=== PATIENT | male | born 1980 ===

== ENCOUNTER 2017-09-30 10:09 | Emergency (ER) | payer MEDICAID, OTHER ==
[2017-09-30 10:10] VITALS: BMI 19.8
[2017-09-30 10:19] VITALS: O2SAT 100
--- NOTE | 2017-09-30 11:03 | C.PDOC ---
History Of Present Illness 37 year old male with Hx of ulcers presents to the ED c/o non radiating abdominal pain for the past 3 days. Patient reports he goes to dialysis twice a week on Friday and Friday. Patient denies vomit, nausea, fever, diarrhea, cough, weakness, numbness, SOB. Chief Complaint (Nursing): Abdominal Pain History Per: Patient History/Exam Limitations: no limitations Onset/Duration Of Symptoms: Days Current Symptoms Are (Timing): Gone Location Of Pain/Discomfort: RUQ Radiation Of Pain To:: None Quality Of Discomfort: "Pain" Associated Symptoms: denies: Fever, Chills, Nausea, Vomiting, Diarrhea, Loss Of Appetite Recent travel outside of the [place]: No Additional History Per: Patient Past Medical History Reviewed: Historical Data, Nursing Documentation, Vital Signs Vital Signs: Last Vital Signs Temp 97.4 F L 09/30/17 13:10 Pulse 66 09/30/17 13:10 Resp 18 09/30/17 13:10 BP 150/85 09/30/17 13:10 Pulse Ox 100 09/30/17 13:10 - Medical History PMH: HTN, Hypothyroidism, End Stage Renal Disease (W-F), Chronic Kidney Disease Surgical History: Appendectomy - [facility] Procedures EXCISION OF DUODENUM, ENDO, DIAGN (01/02/16) EXCISION OF STOMACH, ENDO, DIAGN (01/02/16) HEMODIALYSIS (10/03/13) PERFORMANCE OF URINARY FILTRATION, MULTIPLE (01/02/16) Family History: States: Unknown Family Hx - Social History Hx Tobacco Use: No Hx Alcohol Use: No Hx Substance Use: No - Immunization History Hx Tetanus Toxoid Vaccination: Yes Hx Influenza Vaccination: Yes Hx Pneumococcal Vaccination: Yes (04/2015) Review Of Systems Constitutional: Negative for: Fever, Chills Cardiovascular: Negative for: Chest Pain Respiratory: Negative for: Cough, Shortness of Breath Gastrointestinal: Positive for: Abdominal Pain. Negative for: Nausea, Vomiting , Diarrhea Skin: Negative for: Rash Neurological: Negative for: Weakness, Numbness Physical Exam - Physical Exam Appears: Non-toxic, No Acute Distress Skin: Normal Color, Warm, Dry Head: Atraumatic, Normacephalic Nose: No Discharge Oral Mucosa: Moist Neck: Normal ROM, Supple Chest: Symmetrical Cardiovascular: Rhythm Regular, No Murmur Respiratory: Normal Breath Sounds, No Rales, No Rhonchi, No Wheezing Gastrointestinal/Abdominal: Soft, Tenderness (Very mild RUQ), No Guarding, No Rebound Back: No CVA Tenderness Extremity: Normal ROM, No Pedal Edema, No Calf Tenderness, No Swelling, Other ( Left arm AV grafts ) Neurological/Psych: Oriented x3, Normal Speech, Normal Cognition Gait: Steady ED Course And Treatment - Laboratory Results Result Diagrams: 09/30/17 11:28 09/30/17 11:28 O2 Sat by Pulse Oximetry: 100 (On RA) Pulse Ox Interpretation: Normal - CT Scan/US Abdomen US Other Rad Studies (CT/US): Interpreted By Me, Read By Radiologist, Radiology Report Reviewed CT/US Interpretation: HISTORY: abd pain- greatest in RUQ. COMPARISON: Abdominal ultrasound performed 10/02/13. TECHNIQUE: Sonographic evaluation of the abdomen. FINDINGS: LIVER: Measures 17.7 cm in sagittal dimension. Echogenic liver may be seen in setting of hepatic parenchymal disease or fatty infiltration. No focal hepatic mass identified. The main portal vein appears patent with normal directional flow. No intrahepatic bile duct dilatation. Abdominal ascites. GALLBLADDER: No gallstones. No gallbladder wall thickening. Negative sonographic Carrillo's sign as assessed by the logistics account manager. COMMON BILE DUCT: Measures 5 mm. PANCREAS: Not well visualized. RIGHT KIDNEY : Echogenic renal parenchyma. Measures 9.2 x 2.9 x 3.7cm. No hydronephrosis appreciated. 4 mm right upper pole calculus. Midpole renal cyst measures approximately 1.3 x 1.0 x 1.4 cm with associated echogenic focus, possibly calcification. Lower pole renal cyst measures approximately 0.8 x 0.9 x 0.9 cm. LEFT KIDNEY: Echogenic renal parenchyma. Measures 9.1 x 4.1 x 4.5cm. No hydronephrosis. 6 mm midpole calculus. 1.1 x 0.9 x 1.3 cm upper pole cyst. SPLEEN: Measures approximately 12.1 cm. AORTA: Limited views appear unremarkable. IVC: Limited views appear unremarkable. OTHER FINDINGS: None. IMPRESSION: Echogenic liver may be seen in setting of hepatic parenchymal disease or fatty infiltration. Bilateral renal cysts as above including 1.4 cm right midpole cyst with associated echogenic focus, possibly calcification. Nonobstructing bilateral renal calculi. Echogenic renal parenchyma may be seen in setting of medical renal disease. Mild ascites. Medical Decision Making Medical Decision Making: Plan: * Blood work ordered * UA ordered * Urine culture collected * Abdomen US ordered Disposition - Disposition Referrals: Reg Dodson [Medical Doctor] - Disposition: HOME/ ROUTINE Disposition Time: 12:40 Condition: GOOD Additional Instructions: Thank you for letting us take care of you today. The emergency medical care you received today was directed at your acute symptoms. If you were prescribed any medication, please fill it and take as directed. It may take several days for your symptoms to resolve. Return to the Emergency Department if your symptoms worsen, do not improve, or if you have any other problems. Please contact your doctor or call one of the physicians/clinics you have been referred to that are listed on the Patient Visit Information form that is included in your discharge packet. Bring any paperwork you were given at discharge with you along with any medications you are taking to your follow up visit. Our treatment cannot replace ongoing medical care by a primary care provider (PCP) outside of the emergency department. Thank you for allowing the Critical access hospital team to be part of your care today. FOLLOW UP WITH DR. DODSON TODAY OR TOMORROW. YOUR CREATININE IS 18.[address] DODSON OF THIS BLOOD VALUE. Instructions: Pancreatitis (ED), Chronic Kidney Disease (ED), Dialysis Diet ( GEN) - Clinical Impression Clinical Impression: Abdominal pain, Chronic kidney disease - Scribe Statement The provider has reviewed the documentation as recorded by the Scribe Max Louie All medical record entries made by the Scribe were at my direction and personally dictated by me. I have reviewed the chart and agree that the record accurately reflects my personal performance of the history, physical exam, medical decision making, and the department course for this patient. I have also personally directed, reviewed, and agree with the discharge instructions and disposition.
[2017-09-30 11:38] LABS: BASO % 0.5 % (0.0-2.0); EOS # 0.2 K/uL (0.0-0.7); EOS % 2.5 % (0.0-4.0); HEMATOCRIT 35.1 % (35.0-51.0); LYMPH # 1.4 K/uL (1.0-4.3); MEAN CELL VOLUME 88.6 fL (80.0-94.0); MEAN CORPUSCULAR HEMOGLOBIN 29.4 pg (27.0-31.0); MEAN CORPUSCULAR HGB CONC 33.2 g/dL (33.0-37.0); MEAN PLATELET VOLUME 8.1 fL (7.2-11.7); MONO # 0.4 K/uL (0.0-0.8); MONO % 6.4 % (0.0-10.0); NRBC % 0.6 % (0.0-2.0); RED CELL DISTRIBUTION WIDTH 15.1 % (11.5-14.5); WHITE BLOOD COUNT 6.2 K/uL (4.8-10.8)
[2017-09-30 11:59] LABS: ALB/GLOB RATIO 1.6 (1.0-2.1); BILIRUBIN,TOTAL 0.6 mg/dL (0.2-1.3); CALCIUM 7.8 mg/dl (8.6-10.4); POTASSIUM 4.4 mmol/L (3.6-5.2); TOTAL PROTEIN 6.5 g/dL (6.3-8.3)
--- NOTE | 2017-09-30 12:39 | US ---
HISTORY: abd pain- greatest in RUQ COMPARISON: Abdominal ultrasound performed 10/02/13 TECHNIQUE: Sonographic evaluation of the abdomen. FINDINGS: LIVER: Measures 17.7 cm in sagittal dimension. Echogenic liver may be seen in setting of hepatic parenchymal disease or fatty infiltration. No focal hepatic mass identified. The main portal vein appears patent with normal directional flow. No intrahepatic bile duct dilatation. Abdominal ascites. GALLBLADDER: No gallstones. No gallbladder wall thickening. Negative sonographic Carrillo's sign as assessed by the health and safety coordinator. COMMON BILE DUCT: Measures 5 mm. PANCREAS: Not well visualized. RIGHT KIDNEY: Echogenic renal parenchyma. Measures 9.2 x 2.9 x 3.7cm. No hydronephrosis appreciated. 4 mm right upper pole calculus. Midpole renal cyst measures approximately 1.3 x 1.0 x 1.4 cm with associated echogenic focus, possibly calcification. Lower pole renal cyst measures approximately 0.8 x 0.9 x 0.9 cm. LEFT KIDNEY: Echogenic renal parenchyma. Measures 9.1 x 4.1 x 4.5cm. No hydronephrosis. 6 mm midpole calculus. 1.1 x 0.9 x 1.3 cm upper pole cyst. SPLEEN: Measures approximately 12.1 cm. AORTA: Limited views appear unremarkable. IVC: Limited views appear unremarkable. OTHER FINDINGS: None. IMPRESSION: Echogenic liver may be seen in setting of hepatic parenchymal disease or fatty infiltration. Bilateral renal cysts as above including 1.4 cm right midpole cyst with associated echogenic focus, possibly calcification. Nonobstructing bilateral renal calculi. Echogenic renal parenchyma may be seen in setting of medical renal disease. Mild ascites.
[2017-09-30 13:14] VITALS: BP 150/85; PULSE 66; RESP 18; TEMP 97.4
== END 2017-09-30 13:26 | disposition home or self-care (01) ==
LOC: C.ER 10:09
DX: R10.11 Right upper quadrant pain (principal); N18.6 End stage renal disease; Z99.2 Dependence on renal dialysis

== ENCOUNTER 2017-10-01 11:50 | Inpatient (IN) | payer MEDICAID ==
[2017-10-01 12:03] VITALS: BMI 19.5
[2017-10-01 12:56] LABS: BASO % 0.3 % (0.0-2.0); EOS # 0.1 K/uL (0.0-0.7); EOS % 1.5 % (0.0-4.0); HEMATOCRIT 38.7 % (35.0-51.0); LYMPH # 1.1 K/uL (1.0-4.3); LYMPH % 13.5 % (20.0-40.0); MEAN CELL VOLUME 88.5 fL (80.0-94.0); MEAN CORPUSCULAR HEMOGLOBIN 29.3 pg (27.0-31.0); MEAN CORPUSCULAR HGB CONC 33.1 g/dL (33.0-37.0); MEAN PLATELET VOLUME 8.1 fL (7.2-11.7); MONO # 0.4 K/uL (0.0-0.8); MONO % 5.2 % (0.0-10.0); NRBC % 0.6 % (0.0-2.0); RED CELL DISTRIBUTION WIDTH 15.1 % (11.5-14.5); WHITE BLOOD COUNT 8.5 K/uL (4.8-10.8)
--- NOTE | 2017-10-01 13:03 | C.PDOC ---
History Of Present Illness Patient presents to ED c/o epigastric and substernal chest pain, described as sharp and pressure-like, that occasionally radiates to his back. Patient was seen in ED yesterday for similar symptoms, but today he states the symptoms were in the chest. Symptoms happened during hemodialysis (completed 1.5 hrs). He denies SOB, cough, fever, abdominal pain, nausea/vomiting. Time Seen by Provider: 10/01/17 11:54 Chief Complaint (Nursing): Chest Pain History Per: Patient History/Exam Limitations: no limitations Onset/Duration Of Symptoms: Days (2) Current Symptoms Are (Timing): Still Present Severity: Moderate Quality: Sharp, Pressure, "Pain" Exacerbating Factors: Movement (sitting forward) Past Medical History Reviewed: Historical Data, Nursing Documentation, Vital Signs Vital Signs: Last Vital Signs Temp 98 F 10/03/17 17:55 Pulse 80 10/03/17 17:55 Resp 16 10/03/17 17:55 BP 118/60 10/03/17 17:55 Pulse Ox 98 10/04/17 17:45 - Medical History PMH: HTN, Hypothyroidism, End Stage Renal Disease (W-F), Chronic Kidney Disease Surgical History: Appendectomy - [facility] Procedures EXCISION OF DUODENUM, ENDO, DIAGN (01/02/16) EXCISION OF STOMACH, ENDO, DIAGN (01/02/16) HEMODIALYSIS (10/03/13) PERFORMANCE OF URINARY FILTRATION, MULTIPLE (01/02/16) Family History: States: No Known Family Hx - Social History Hx Tobacco Use: No Hx Alcohol Use: No Hx Substance Use: No - Immunization History Hx Tetanus Toxoid Vaccination: Yes Hx Influenza Vaccination: Yes Hx Pneumococcal Vaccination: Yes (04/2015) Review Of Systems Except As Marked, All Systems Reviewed And Found Negative. Constitutional: Negative for: Fever, Chills Cardiovascular: Positive for: Chest Pain. Negative for: Palpitations Respiratory: Negative for: Cough, Shortness of Breath Gastrointestinal: Positive for: Abdominal Pain. Negative for: Nausea, Vomiting , Diarrhea Skin: Negative for: Rash Physical Exam - Physical Exam Appears: Well, Non-toxic, No Acute Distress Skin: Normal Color, Warm, Dry, No Rash Oral Mucosa: Moist Cardiovascular: Rhythm Regular Respiratory: Normal Breath Sounds, No Rales, No Rhonchi, No Wheezing Gastrointestinal/Abdominal: Bowel Sounds, Soft, Tenderness (mild epigastric TTP , (-) Carrillo's) Extremity: Other (LUE AV fistula with palpable thrill) ED Course And Treatment - Laboratory Results Result Diagrams: 10/01/17 12:53 10/01/17 12:53 ECG: Interpreted By Me, Viewed By Me (NSR 70 bpm, normal axis, LVH, no acute ST/ T wave changes) ECG Interpretation: No Acute Changes O2 Sat by Pulse Oximetry: 98 (RA) Pulse Ox Interpretation: Normal - Radiology CXR: Interpreted by Me, Viewed By Me CXR Interpretation: Yes: No Acute Disease. No: Infiltrates - CT Scan/US CT CHEST/ABD IV CONTRAST Other Rad Studies (CT/US): Read By Radiologist, Radiology Report Reviewed CT/US Interpretation: Accession No. : [id number]. Patient Name / ID : FERMIN CHRISTOPHER O / [id number]. Exam Date : 10/01/2017 14:49:11 ( Approved ). Study Comment : Sex / Age : M / [id number]. Creator : Mercedes Cruz. Dictator : Marnie Smith MD. Manufacturer Agent : Retail Worker : Marnie Smith MD. Approver2 : Report Date : 10/01/2017 15:18:03. My Comment : . CT dissection protocol. Indication: Epigastric and chest pain, rule out dissection. Comparison: None available. Technique: Contrast dose: 100 cc Visipaque 320. Total exam DLP: 503.90. Axial computed tomographic angiogram images of the chest and abdomen were performed after bolus administration of nonionic intravenous contrast. Sagittal and coronal reformatted images were generated and reviewed. This CT exam was performed using 1 or more of the falling dose reduction techniques: Automated exposure control, adjustment of the MAA and/or kV according to patient size, and/or use of iterative reconstruction technique. Findings: The visualized inferior thyroid gland appears unremarkable. Visualized mediastinal and hilar vascular structures appear unremarkable. Heart size appears within normal limits. No focal consolidation. No pleural effusion. No pneumothorax. There is normal course and contour of the abdominal aorta and common iliac arteries. The celiac artery origin is widely patent. The superior mesenteric artery origin is widely patent. The inferior mesenteric artery origin is patent. Bilateral renal arteries appear widely patent. The liver appears within normal limits of size and morphology. The pancreas, spleen, adrenal glands, and gallbladder appear unremarkable. No obstructing calculi or hydronephrosis identified. Nonobstructing punctate bilateral renal calculi. Innumerable bilateral renal hypodensities, too small to characterize. No bulky adenopathy identified. Visualized bowel loops appear within normal limits of caliber without evidence of obstruction. Marked small bowel wall thickening; correlate clinically for enteritis. No definite free air. No acute osseous abnormality is detected. Diffuse bony sclerosis of the osseous structures; correlate clinically for underlying pathology such as metabolic pathology/ renal osteodystrophy. Impression: No aneurysmal dilatation or dissection. Innumerable bilateral renal hypodensities which are too small to characterize. Marked small bowel wall thickening ; correlate clinically for enteritis. Diffuse bony sclerosis of the osseous structures; correlate clinically for underlying pathology such as metabolic pathology/ renal osteodystrophy. Progress Note: Blood work, CXR, EKG ordered and reviewed. Spoke with patient's grader green meat Dr. Lackey, agrees CT chest/abd with hemodialysis immediately after. - Physician Consult Information Physician Contacted: Zina Huston Outcome Of Conversation: Discussed patient with PMD, agrees with admission for chest pain, R/O ACS. Disposition - Disposition Disposition: HOSPITALIZED Disposition Time: 13:44 Condition: STABLE - Clinical Impression Clinical Impression: Chest pain Decision To Admit - Pt Status Changed To: Hospital Disposition Of: Inpatient - Admit Certification Admit to Inpatient:: After my assessment, the patient will require hospitalization for at least two midnights. This is because of the severity of symptoms shown, intensity of services needed, and/or the medical risk in this patient being treated as an outpatient. - InPatient: Physician Admission Certification: I certify that this patient requires 2 or more midnights of care for the following reason:: see notes - . Bed Request Type: Telemetry Admitting Physician: Zina Huston Patient Diagnosis: Chest pain
[2017-10-01 13:10] LABS: ALB/GLOB RATIO 1.4 (1.0-2.1); ALKALINE PHOSPHATASE 102 U/L (38-126); ALT/SGPT 41 U/L (21-72); AST/SGOT 21 U/L (17-59); BILIRUBIN,TOTAL 0.9 mg/dL (0.2-1.3); BLOOD UREA NITROGEN 91 mg/dL (9-20); CALCIUM 7.7 mg/dl (8.6-10.4); CARBON DIOXIDE 26 mmol/L (22-30); CHLORIDE 94 mmol/L (98-107); GLUCOSE,RANDOM 83 mg/dL (75-110); POTASSIUM 3.7 mmol/L (3.6-5.2); SODIUM 139 mmol/L (132-148); TOTAL PROTEIN 7.5 g/dL (6.3-8.3)
[2017-10-01 13:32] LABS: GFR AFRICAN-AMERICAN 5
--- NOTE | 2017-10-01 13:55 | RAD ---
HISTORY: CP COMPARISON: Chest x-ray performed at 01/08/16 TECHNIQUE: Chest, one view. FINDINGS: LUNGS: Right hilar prominence. No focal consolidation. Please note that chest x-ray has limited sensitivity for the detection of pulmonary masses. PLEURA: No significant pleural effusion identified. No definite pneumothorax . CARDIOVASCULAR: The cardiomediastinal silhouette appears within normal limits of size. OSSEOUS STRUCTURES: No acute osseous abnormality identified. VISUALIZED UPPER ABDOMEN: Unremarkable. OTHER FINDINGS: None. IMPRESSION: Right hilar prominence. No focal consolidation, significant pleural effusion, or definite pneumothorax identified.
[2017-10-01] MEDS ORDERED: Iodixanol 320 MG/ML 100 ML BOTTLE IV ONE (14:43)
--- NOTE | 2017-10-01 14:45 | CP.PCM.CON ---
History of Present Illness - History of Present Illness History of Present Illness: 37 yo [place] male, history of HTN and ESRD for 6 years, presents with pleuritic chest pain and increased pain on leaning forward for 2 days. Pt received only 1 hour of HD today due to pain. No history of coronary artery disease. Notes "skips" HD treatments. No cough or fever. Vitals are stable in ER. Chest CT scan ordered, HD to be arranged. Review of Systems - Constitutional Constitutional: absent: Fatigue, Fever - EENT Eyes: absent: Blurred Vision, Decreased Night Vision Nose/Mouth/Throat: absent: Nasal Discharge, Sinus Pain - Cardiovascular Cardiovascular: Chest Pain. absent: Dyspnea on Exertion - Respiratory Respiratory: Dyspnea, Pain on Inspiration - Gastrointestinal Gastrointestinal: absent: Abdominal Pain, Bloating - Genitourinary Genitourinary: Change in Urinary Stream - Musculoskeletal Musculoskeletal: absent: Arthralgias, Joint Swelling - Neurological Neurological: absent: Abnormal Gait, Abnormal Hearing - Psychiatric Psychiatric: absent: Anxiety, Memory Loss Past Patient History - Infectious Disease Hx of Infectious Diseases: None - Past Medical History & Family History Past Medical History?: Yes - Past Social History Smoking Status: Never Smoked - CARDIAC Hx Hypertension: Yes - PULMONARY Hx Respiratory Disorders: No - NEUROLOGICAL Hx Neurological Disorder: No - HEENT Hx HEENT Problems: No - RENAL Hx Chronic Kidney Disease: Yes - ENDOCRINE/METABOLIC Hx Hypothyroidism: Yes - HEMATOLOGICAL/ONCOLOGICAL Hx Blood Disorders: No - INTEGUMENTARY Hx Dermatological Problems: No - MUSCULOSKELETAL/RHEUMATOLOGICAL Hx Falls: No - GASTROINTESTINAL Hx Gastrointestinal Disorders: Yes Hx Nausea: Yes Other/Comment: 'STOMACH ULCER' - PSYCHIATRIC Hx Substance Use: No - SURGICAL HISTORY Hx Appendectomy: Yes - ANESTHESIA Hx Anesthesia: Yes Hx Anesthesia Reactions: No Hx Malignant Hyperthermia: No Meds Allergies/Adverse Reactions: Allergies Allergy/AdvReac Type Severity Reaction Status Date / Time oxycodone Allergy Verified 10/01/17 12:11 tramadol Allergy NAUSEA Verified 10/01/17 12:11 Physical Exam - Constitutional Appears: Non-toxic, No Acute Distress - Head Exam Head Exam: ATRAUMATIC, NORMAL INSPECTION - Eye Exam Eye Exam: EOMI, Normal appearance - ENT Exam ENT Exam: Mucous Membranes Moist - Neck Exam Neck exam: Positive for: Full Rom. Negative for: Lymphadenopathy - Respiratory Exam Respiratory Exam: Clear to Auscultation Bilateral. absent: Accessory Muscle Use - Cardiovascular Exam Cardiovascular Exam: REGULAR RHYTHM. absent: Rubs - Extremities Exam Extremities exam: Negative for: pedal edema - Neurological Exam Neurological exam: Alert, Oriented x3 Results - Vital Signs Recent Vital Signs: Last Vital Signs Temp 98.7 F 10/01/17 14:15 Pulse 76 10/01/17 14:15 Resp 20 10/01/17 14:15 BP 135/76 10/01/17 14:15 Pulse Ox 100 10/01/17 14:15 - Labs Result Diagrams: 10/01/17 12:53 10/01/17 12:53 Labs: Laboratory Results - last 24 hr 10/01/17 10/01/17 12:53 12:53 WBC 8.5 RBC 4.38 L Hgb 12.8 Hct 38.7 MCV 88.5 MCH 29.3 MCHC 33.1 RDW 15.1 H Plt Count 163 MPV 8.1 Neut % (Auto) 79.5 H Lymph % (Auto) 13.5 L Harris % (Auto) 5.2 Eos % (Auto) 1.5 Baso % (Auto) 0.3 Neut # 6.8 Lymph # 1.1 Harris # 0.4 Eos # 0.1 Baso # 0.0 Sodium 139 Potassium 3.7 Chloride 94 L Carbon Dioxide 26 Anion Gap 22 H BUN 91 H Creatinine 14.0 H* D Est GFR ( Amer) 5 Est GFR (Non-Af Amer) 4 Random Glucose 83 Calcium 7.7 L Total Bilirubin 0.9 AST 21 ALT 41 Alkaline Phosphatase 102 Total Creatine Kinase 103 CK-MB (Mass) 2.92 Troponin I < 0.0120 Total Protein 7.5 Albumin 4.4 Globulin 3.2 Albumin/Globulin Ratio 1.4 Assessment & Plan - Assessment and Plan (Free Text) Assessment: noncompliance with HD atypical chest pain agree with chest ct will order echo to evaluate for pericardial effusion HD today
--- NOTE | 2017-10-01 15:41 | CT ---
CT dissection protocol Indication: Epigastric and chest pain, rule out dissection Comparison: None available Technique: Contrast dose: 100 cc Visipaque 320 Total exam DLP: 503.90 Axial computed tomographic angiogram images of the chest and abdomen were performed after bolus administration of nonionic intravenous contrast. Sagittal and coronal reformatted images were generated and reviewed. This CT exam was performed using 1 or more of the falling dose reduction techniques: Automated exposure control, adjustment of the MAA and/or kV according to patient size, and/or use of iterative reconstruction technique. Findings: The visualized inferior thyroid gland appears unremarkable. Visualized mediastinal and hilar vascular structures appear unremarkable. Heart size appears within normal limits. No focal consolidation. No pleural effusion. No pneumothorax. There is normal course and contour of the abdominal aorta and common iliac arteries. The celiac artery origin is widely patent. The superior mesenteric artery origin is widely patent. The inferior mesenteric artery origin is patent. Bilateral renal arteries appear widely patent. The liver appears within normal limits of size and morphology. The pancreas, spleen, adrenal glands, and gallbladder appear unremarkable. No obstructing calculi or hydronephrosis identified. Nonobstructing punctate bilateral renal calculi. Innumerable bilateral renal hypodensities, too small to characterize. No bulky adenopathy identified. Visualized bowel loops appear within normal limits of caliber without evidence of obstruction. Marked small bowel wall thickening; correlate clinically for enteritis. No definite free air. No acute osseous abnormality is detected. Diffuse bony sclerosis of the osseous structures; correlate clinically for underlying pathology such as metabolic pathology/ renal osteodystrophy. Impression: No aneurysmal dilatation or dissection. Innumerable bilateral renal hypodensities which are too small to characterize. Marked small bowel wall thickening ; correlate clinically for enteritis. Diffuse bony sclerosis of the osseous structures; correlate clinically for underlying pathology such as metabolic pathology/ renal osteodystrophy.
--- NOTE | 2017-10-01 19:43 | CP.PCM.HP ---
Past Patient History - Infectious Disease Hx of Infectious Diseases: None - Past Medical History & Family History Past Medical History?: Yes - Past Social History Smoking Status: Never Smoked - CARDIAC Hx Cardiac Disorders: Yes Hx Hypertension: Yes - PULMONARY Hx Respiratory Disorders: Yes Hx Pneumonia: Yes (2014) - NEUROLOGICAL Hx Neurological Disorder: No - HEENT Hx HEENT Problems: Yes Hx Epistaxis: Yes (Precipitated by dry heat) - RENAL Hx Chronic Kidney Disease: Yes Hx Dialysis: Yes Type of Dialysis Access: Left AVF Date of Last Dialysis Treatment: 10/01/17 Other/Comment: [facility] HD center in - ENDOCRINE/METABOLIC Hx Endocrine Disorders: Yes Hx Hypothyroidism: Yes - HEMATOLOGICAL/ONCOLOGICAL Hx Blood Disorders: No - INTEGUMENTARY Hx Dermatological Problems: No - MUSCULOSKELETAL/RHEUMATOLOGICAL Hx Musculoskeletal Disorders: Yes Hx Falls: No (Denies) Hx Fractures: Yes (B/L hip fractures 2012 as per pt) - GASTROINTESTINAL Hx Gastrointestinal Disorders: Yes Hx Nausea: Yes Hx Ulcer: Yes ('STOMACH ULCER w/ bleeding' as per pt) - GENITOURINARY/GYNECOLOGICAL Hx Genitourinary Disorders: No - PSYCHIATRIC Hx Psychophysiologic Disorder: No Hx Substance Use: No - SURGICAL HISTORY Hx Surgeries: Yes Hx Appendectomy: Yes Hx Vascular Access Device: Yes (Left AVF) - ANESTHESIA Hx Anesthesia: Yes Hx Anesthesia Reactions: No Hx Malignant Hyperthermia: No Has any member of the family had a problem w/ anesthesia?: No Meds Allergies/Adverse Reactions: Allergies Allergy/AdvReac Type Severity Reaction Status Date / Time oxycodone Allergy Verified 10/01/17 12:11 tramadol Allergy NAUSEA Verified 10/01/17 12:11 Physical Exam - Constitutional Appears: Well - Head Exam Head Exam: ATRAUMATIC, NORMAL INSPECTION, NORMOCEPHALIC - Eye Exam Eye Exam: EOMI, Normal appearance, PERRL Pupil Exam: NORMAL ACCOMODATION, PERRL - ENT Exam ENT Exam: Mucous Membranes Moist, Normal Exam - Neck Exam Neck exam: Positive for: Normal Inspection - Respiratory Exam Respiratory Exam: Decreased Breath Sounds - Cardiovascular Exam Cardiovascular Exam: REGULAR RHYTHM, +S1, +S2 - GI/Abdominal Exam GI & Abdominal Exam: Diminished Bowel Sounds, Soft - Rectal Exam Rectal Exam: Deferred Results - Vital Signs Recent Vital Signs: Last Vital Signs Temp 98.1 F 10/01/17 18:05 Pulse 79 10/01/17 18:20 Resp 20 10/01/17 18:05 BP 144/82 10/01/17 18:05 Pulse Ox 100 10/01/17 18:05 - Labs Result Diagrams: 10/01/17 12:53 10/01/17 12:53 Labs: Laboratory Results - last 24 hr 10/01/17 10/01/17 12:53 12:53 WBC 8.5 RBC 4.38 L Hgb 12.8 Hct 38.7 MCV 88.5 MCH 29.3 MCHC 33.1 RDW 15.1 H Plt Count 163 MPV 8.1 Neut % (Auto) 79.5 H Lymph % (Auto) 13.5 L Bucks % (Auto) 5.2 Eos % (Auto) 1.5 Baso % (Auto) 0.3 Neut # 6.8 Lymph # 1.1 Bucks # 0.4 Eos # 0.1 Baso # 0.0 Sodium 139 Potassium 3.7 Chloride 94 L Carbon Dioxide 26 Anion Gap 22 H BUN 91 H Creatinine 14.0 H* D Est GFR ( Amer) 5 Est GFR (Non-Af Amer) 4 Random Glucose 83 Calcium 7.7 L Total Bilirubin 0.9 AST 21 ALT 41 Alkaline Phosphatase 102 Total Creatine Kinase 103 CK-MB (Mass) 2.92 Troponin I < 0.0120 Total Protein 7.5 Albumin 4.4 Globulin 3.2 Albumin/Globulin Ratio 1.4
[2017-10-01] MEDS: Rosuvastatin Calcium 2.5 mg Tab PO SCH (21:25)
[2017-10-02] MEDS ORDERED: Aminophylline 25 mg/ml Inj ONE (07:55)
--- NOTE | 2017-10-02 10:44 | CP.PCM.PN ---
Subjective - Date & Time of Evaluation Date of Evaluation: 10/02/17 Time of Evaluation: 10:42 - Subjective Subjective: Stable dialysis 10/01 undergoing stress test has been noncompliant with outpt dialysis Objective - Vital Signs/Intake and Output Vital Signs (last 24 hours): Temp Pulse Resp BP Pulse Ox 98.2 F 69 20 117/68 97 10/02/17 04:10 10/02/17 04:10 10/02/17 04:10 10/02/17 04:10 10/02/17 04:10 Intake and Output: 10/02/17 10/02/17 06:59 18:59 Intake Total 110 Output Total 100 Balance 10 - Medications Medications: Current Medications Amlodipine Besylate (Norvasc) 10 mg PO DAILY [facility] Aspirin (Aspirin) 325 mg PO DAILY [facility] Clopidogrel Bisulfate (Plavix) 75 mg PO DAILY [facility] Rosuvastatin Calcium (Crestor) 2.5 mg PO HS [facility] Last Admin: 10/01/17 21:25 Dose: 2.5 mg Sevelamer Carbonate (Renvela) 2,400 mg PO TID [facility] Last Admin: 10/01/17 19:12 Dose: 2,400 mg Vitamin B Complex/Vitamin C (Berocca) 1 tab PO DAILY [facility] - Labs Labs: 10/01/17 12:53 10/01/17 12:53 - Constitutional Appears: No Acute Distress, Chronically Ill - Head Exam Head Exam: ATRAUMATIC, NORMAL INSPECTION - Eye Exam Eye Exam: EOMI, Normal appearance - Neck Exam Neck Exam: Normal Inspection. absent: Tenderness - Respiratory Exam Respiratory Exam: Clear to Ausculation Bilateral, NORMAL BREATHING PATTERN - Cardiovascular Exam Cardiovascular Exam: REGULAR RHYTHM, +S1 - GI/Abdominal Exam GI & Abdominal Exam: Soft. absent: Tenderness - Extremities Exam Extremities Exam: Normal Inspection. absent: Tenderness - Neurological Exam Neurological Exam: Awake, CN II-XII Intact - Skin Skin Exam: Dry, Warm Assessment and Plan (1) Hereditary nephritis Status: Acute (2) ESRD (end stage renal disease) Status: Chronic (3) HTN (hypertension) Status: Chronic - Assessment and Plan (Free Text) Plan: continue dialysis MWF adequate UF await results EST
[2017-10-02] MEDS: Vitamin B Complex/Vitamin C Tab PO SCH ×2 (10:55→14:16)
--- NOTE | 2017-10-02 18:41 | CP.PCM.PN ---
Subjective - Date & Time of Evaluation Date of Evaluation: 10/02/17 Time of Evaluation: 14:40 - Subjective Subjective: clinically same Objective - Vital Signs/Intake and Output Vital Signs (last 24 hours): Temp Pulse Resp BP Pulse Ox 98.1 F 77 20 122/67 99 10/02/17 15:19 10/02/17 15:41 10/02/17 15:19 10/02/17 15:19 10/02/17 15:19 Intake and Output: 10/02/17 10/02/17 06:59 18:59 Intake Total 110 Output Total 100 Balance 10 - Medications Medications: Current Medications Amlodipine Besylate (Norvasc) 10 mg PO DAILY [facility] BEDS AT [facility] Last Admin: 10/02/17 14:17 Dose: 10 mg Aspirin (Aspirin) 325 mg PO DAILY [facility]CLUDE 234 BEDS AT [facility] Last Admin: 10/02/17 14:16 Dose: 325 mg Clopidogrel Bisulfate (Plavix) 75 mg PO DAILY [facility]CLUDE 234 BEDS AT THE [facility] Last Admin: 10/02/17 14:17 Dose: 75 mg Rosuvastatin Calcium (Crestor) 2.5 mg PO HS [facility]S INCLUDE 234 BEDS AT THE [facility] Last Admin: 10/01/17 21:25 Dose: 2.5 mg Sevelamer Carbonate (Renvela) 2,400 mg PO TID [facility]CLUDE 234 BEDS AT [facility] Last Admin: 10/02/17 17:27 Dose: 2,400 mg Vitamin B Complex/Vitamin C (Berocca) 1 tab PO DAILY [facility]CLUDE 234 BEDS AT [facility] Last Admin: 10/02/17 14:16 Dose: 1 tab - Labs Labs: 10/01/17 12:53 10/01/17 12:53 - Constitutional Appears: Well - Head Exam Head Exam: ATRAUMATIC, NORMAL INSPECTION, NORMOCEPHALIC - Eye Exam Eye Exam: EOMI, Normal appearance, PERRL Pupil Exam: NORMAL ACCOMODATION, PERRL - ENT Exam ENT Exam: Mucous Membranes Moist, Normal Exam - Neck Exam Neck Exam: Full ROM, Normal Inspection. absent: Lymphadenopathy - Respiratory Exam Respiratory Exam: Decreased Breath Sounds - Cardiovascular Exam Cardiovascular Exam: REGULAR RHYTHM, +S1, +S2 - GI/Abdominal Exam GI & Abdominal Exam: Soft, Diminished Bowel Sounds - Rectal Exam Rectal Exam: Deferred
[2017-10-02] MEDS: Rosuvastatin Calcium 2.5 mg Tab PO SCH (21:10)
[2017-10-03] MEDS: Vitamin B Complex/Vitamin C Tab PO SCH (09:36)
--- NOTE | 2017-10-03 15:03 | CP.PCM.PN ---
Subjective - Date & Time of Evaluation Date of Evaluation: 10/03/17 Time of Evaluation: 15:01 - Subjective Subjective: seen at dialysis- to UF 2-2.5L s/p cardiac cath- reported as medical rx only BP controlled phos elevated no more CPs Objective - Vital Signs/Intake and Output Vital Signs (last 24 hours): Temp Pulse Resp BP Pulse Ox 97.8 F 72 20 120/68 97 10/03/17 14:10 10/03/17 14:10 10/03/17 14:10 10/03/17 14:10 10/03/17 07:40 Intake and Output: 10/03/17 10/03/17 06:59 18:59 Intake Total 100 600 Balance 100 600 - Medications Medications: Current Medications Amlodipine Besylate (Norvasc) 10 mg PO DAILY [facility] Last Admin: 10/03/17 09:36 Dose: 10 mg Aspirin (Aspirin) 325 mg PO DAILY [facility] Last Admin: 10/03/17 09:36 Dose: 325 mg Calcium Acetate (Phoslo) 1,334 mg PO TID [facility] Clopidogrel Bisulfate (Plavix) 75 mg PO DAILY [facility] Last Admin: 10/03/17 09:36 Dose: 75 mg Rosuvastatin Calcium (Crestor) 2.5 mg PO HS [facility] Last Admin: 10/02/17 21:10 Dose: 2.5 mg Sevelamer Carbonate (Renvela) 2,400 mg PO TID [facility] Last Admin: 10/03/17 13:24 Dose: 2,400 mg Vitamin B Complex/Vitamin C (Berocca) 1 tab PO DAILY [facility] Last Admin: 10/03/17 09:36 Dose: 1 tab - Labs Labs: 10/01/17 12:53 10/01/17 12:53 - Constitutional Appears: No Acute Distress, Chronically Ill - Head Exam Head Exam: ATRAUMATIC, NORMAL INSPECTION - Eye Exam Eye Exam: EOMI, Normal appearance - Neck Exam Neck Exam: Normal Inspection. absent: Tenderness - Respiratory Exam Respiratory Exam: Clear to Ausculation Bilateral, NORMAL BREATHING PATTERN - Cardiovascular Exam Cardiovascular Exam: REGULAR RHYTHM, +S1 - GI/Abdominal Exam GI & Abdominal Exam: Soft. absent: Tenderness - Extremities Exam Extremities Exam: Normal Inspection. absent: Tenderness - Neurological Exam Neurological Exam: Awake, CN II-XII Intact - Skin Skin Exam: Dry, Warm Assessment and Plan (1) Hereditary nephritis Status: Acute (2) ESRD (end stage renal disease) Status: Chronic (3) HTN (hypertension) Status: Chronic - Assessment and Plan (Free Text) Plan: incraese phos binders UF about 2Kg same other meds/ dialysis
--- NOTE | 2017-10-03 15:10 | CARD ---
APPROVED REPORT Protocol: EDEN Test Type: NUCLEAR STRESS Test Indications: CP Target HR: 182 bpm Resting ECG: normal Resting Heart Rate: 83 bpm Resting Blood Pressure: 128/80mmHg submaximum (85%): 155 bpm TEST SUMMARY PRETESTWARM-[id number]/80.0. EXERCISESTAGE 101:[id number]/.0. [id number]/.0. POST EXERCISE Reason for Termination: Fatigue Target HR: No Max HR: 110 bpm 63% of Maximum Predicted HR: 182 bpm Exercise duration: 01:03 min:sec, 1 Stage Exercise capacity: 4.6METs Max Blood Pressure: 128/80mmHg Blood Pressure response to exercise: normal resting BP - appropriate response Heart Rate response to exercise: appropriate Chest Pain: No, none Angina index: 0 Arrhythmia: No, none ST Change: No, none Deviation: 0 mm INTERPRETATION Stress EKG Conclusion: AWAIT NUCLEAR IMAGES EXAM: Myocardial Perfusion REST/STRESS Imaging Protocol The imaging protocol used to acquire images was Rest Tc-99m/stress Tc-99m 1 day Rest Spect myocardial perfusion imaging was performed in supine position 45 minutes following the injection of 12.5 mCi of Tc-99 Myoview. Gated Stress Spect was performed 55 minutes after intravenous 32.4 mci Tc-99 Myoview injection. The images were gated to evaluate regional wall motion and calculate ventricular ejection fraction.Images were reconstructed using backfilter projection method in short horizontal and verticle long axis. Spect slices were generated. RESTING DATA HLA006.79laSH8.20L/min ESV29.00mlMyocardial Segx275.00g Av. Heart Rate66.00bpm EF73.00% STRESS DATA HAL988.63vgIH5.60L/min ESV32.00mlMyocardial Qyxd438.00g EF73.00% Regional WT score at stress:0.00 Regional WM score at stress:0.00 Summed WT score at stress:0.00 Av. Heart Rate66.00bpmSummed WM score at stress:0.00 LV Perf. Quant 17 Seg. SSS0.00 17 Seg. SRS0.00 17 Seg. SDS0.00 Stress Defect Extent (% LAD)0.00Rest Defect Extent (% LAD)0.00Rev. Defect Extent (% LAD)0.00 Stress Defect Extent (% LCX)5.00Rest Defect Extent (% LCX)0.00Rev. Defect Extent (% LCX)0.00 Stress Defect Extent (% RCA)0.00Rest Defect Extent (% RCA)0.00Rev. Defect Extent (% RCA)0.00 Stress Defect Extent (% JOHNY)0.90Rest Defect Extent (% JOHNY)0.00Rev. Defect Extent (% JOHNY)0.00 Other Information Quality:Excellent Overall Exercise Capacity: Average IMPRESSION Normal Myocardial Perfusion exercise stress study Global LV Function: Normal Stress Test Summary: Nondiagnostic LV Perfusion Summary: Normal Left Ventricle LV Size/Shape: The left ventricle is normal size. LV Function:Left ventricle systolic function is normal. The Ejection Fraction is 55-60%. Regional Wall Motion:No regional wall motion abnormalities noted. Metabolism/Perfusion There are no perfusion/metabolism defects. Conclusion 1. The stress and resting images show normal perfusion. 2. Clinical correlation suggested. 3. Patient did not reach target heart rate.
--- NOTE | 2017-10-03 16:15 | CP.PCM.PN ---
Subjective - Date & Time of Evaluation Date of Evaluation: 10/03/17 Time of Evaluation: 16:13 - Subjective Subjective: PT SEEN TODAY ON ROUNDS WITH DR. VALLE. CLEARED BY DR. WHITE FOR D/C. I ALSO DISCUSSED STRESS TEST RESULT WITH DR. DELATORRE AND DR. LONG AND PER MERCEDES PT CAN BE D/C HOME TODAY. HE MAY CONTINUE ASA 81 MG PO QD IF HE CHOOSES TO. I SENT RX FOR THIS TO HIS PHARMACY. PT STATES HE HAS ENOUGH OF HIS USUAL MEDS AT HOME. PT IS NONCOMPLIANT WITH HIS HD AND MEDS BUT I HAD LENGTHY DISCUSSION WITH HIM REGARDING WHY HIS COMPLIANCE IS IMPORTANT. PT VERBALIZES UNDERSTANDING OF MEDS, D/C PLAN AND F/U. HE WILL BE D.C HOME AFTER HD THIS EVENING. 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 NO FURTHER ORDERS. Objective - Vital Signs/Intake and Output Vital Signs (last 24 hours): Temp Pulse Resp BP Pulse Ox 97.8 F 72 18 123/70 100 10/03/17 14:25 10/03/17 14:25 10/03/17 14:25 10/03/17 15:25 10/03/17 14:25 Intake and Output: 10/03/17 10/03/17 06:59 18:59 Intake Total 100 600 Balance 100 600 - Medications Medications: Current Medications Amlodipine Besylate (Norvasc) 10 mg PO DAILY [facility] Last Admin: 10/03/17 09:36 Dose: 10 mg Aspirin (Aspirin) 325 mg PO DAILY [facility] Last Admin: 10/03/17 09:36 Dose: 325 mg Calcium Acetate (Phoslo) 1,334 mg PO TID [facility] Clopidogrel Bisulfate (Plavix) 75 mg PO DAILY [facility] Last Admin: 10/03/17 09:36 Dose: 75 mg Rosuvastatin Calcium (Crestor) 2.5 mg PO HS [facility] Last Admin: 10/02/17 21:10 Dose: 2.5 mg Sevelamer Carbonate (Renvela) 2,400 mg PO TID [facility] Last Admin: 10/03/17 13:24 Dose: 2,400 mg Vitamin B Complex/Vitamin C (Berocca) 1 tab PO DAILY [facility] Last Admin: 10/03/17 09:36 Dose: 1 tab - Labs Labs: 10/01/17 12:53 10/01/17 12:53
[2017-10-03 18:15] VITALS: BP 118/60; PULSE 80; RESP 16; TEMP 98
--- NOTE | 2017-10-03 19:34 | CP.PCM.PN ---
Subjective - Date & Time of Evaluation Date of Evaluation: 10/03/17 Time of Evaluation: 12:00 - Subjective Subjective: clinically same Objective - Vital Signs/Intake and Output Vital Signs (last 24 hours): Temp Pulse Resp BP Pulse Ox 98 F 80 16 118/60 100 10/03/17 17:55 10/03/17 17:55 10/03/17 17:55 10/03/17 17:55 10/03/17 17:55 Intake and Output: 10/03/17 10/04/17 18:59 06:59 Intake Total 600 Balance 600 - Medications Medications: Current Medications Amlodipine Besylate (Norvasc) 10 mg PO DAILY [facility] Last Admin: 10/03/17 09:36 Dose: 10 mg Aspirin (Aspirin) 325 mg PO DAILY [facility] Last Admin: 10/03/17 09:36 Dose: 325 mg Calcium Acetate (Phoslo) 1,334 mg PO TID [facility] Last Admin: 10/03/17 18:53 Dose: 1,334 mg Clopidogrel Bisulfate (Plavix) 75 mg PO DAILY [facility] Last Admin: 10/03/17 09:36 Dose: 75 mg Rosuvastatin Calcium (Crestor) 2.5 mg PO HS [facility] Last Admin: 10/02/17 21:10 Dose: 2.5 mg Sevelamer Carbonate (Renvela) 2,400 mg PO TID [facility] Last Admin: 10/03/17 18:53 Dose: 2,400 mg Vitamin B Complex/Vitamin C (Berocca) 1 tab PO DAILY [facility] Last Admin: 10/03/17 09:36 Dose: 1 tab - Labs Labs: 10/01/17 12:53 10/01/17 12:53 - Constitutional Appears: Well - Head Exam Head Exam: ATRAUMATIC, NORMAL INSPECTION, NORMOCEPHALIC - Eye Exam Eye Exam: EOMI, Normal appearance, PERRL Pupil Exam: NORMAL ACCOMODATION, PERRL - ENT Exam ENT Exam: Mucous Membranes Moist, Normal Exam - Neck Exam Neck Exam: Full ROM, Normal Inspection. absent: Lymphadenopathy - Respiratory Exam Respiratory Exam: Decreased Breath Sounds - Cardiovascular Exam Cardiovascular Exam: REGULAR RHYTHM, +S1, +S2 - GI/Abdominal Exam GI & Abdominal Exam: Soft, Diminished Bowel Sounds - Rectal Exam Rectal Exam: Deferred
--- NOTE | 2017-10-03 20:06 | CP.PCM.CON ---
History of Present Illness - History of Present Illness History of Present Illness: Patient presented with atypical chest pain Cardiac work up including stress test is negative so far Recommend medical management Past Patient History - Infectious Disease Hx of Infectious Diseases: None - Past Medical History & Family History Past Medical History?: Yes - Past Social History Smoking Status: Never Smoked - CARDIAC Hx Cardiac Disorders: Yes Hx Hypertension: Yes - PULMONARY Hx Respiratory Disorders: Yes Hx Pneumonia: Yes (2014) - NEUROLOGICAL Hx Neurological Disorder: No - HEENT Hx HEENT Problems: Yes Hx Epistaxis: Yes (Precipitated by dry heat) - RENAL Hx Chronic Kidney Disease: Yes Hx Dialysis: Yes Type of Dialysis Access: Left AVF Date of Last Dialysis Treatment: 10/01/17 Other/Comment: [facility] HD center in - ENDOCRINE/METABOLIC Hx Endocrine Disorders: Yes Hx Hypothyroidism: Yes - HEMATOLOGICAL/ONCOLOGICAL Hx Blood Disorders: No - INTEGUMENTARY Hx Dermatological Problems: No - MUSCULOSKELETAL/RHEUMATOLOGICAL Hx Musculoskeletal Disorders: Yes Hx Falls: No (Denies) Hx Fractures: Yes (B/L hip fractures 2012 as per pt) - GASTROINTESTINAL Hx Gastrointestinal Disorders: Yes Hx Nausea: Yes Hx Ulcer: Yes ('STOMACH ULCER w/ bleeding' as per pt) - GENITOURINARY/GYNECOLOGICAL Hx Genitourinary Disorders: No - PSYCHIATRIC Hx Psychophysiologic Disorder: No Hx Substance Use: No - SURGICAL HISTORY Hx Surgeries: Yes Hx Appendectomy: Yes Hx Vascular Access Device: Yes (Left AVF) - ANESTHESIA Hx Anesthesia: Yes Hx Anesthesia Reactions: No Hx Malignant Hyperthermia: No Has any member of the family had a problem w/ anesthesia?: No Meds Home Medications: Home Medication List Medication Instructions Recorded Confirmed Type Aspirin [Ecotrin] 81 mg PO DAILY #30 tabec 10/03/17 Rx Allergies/Adverse Reactions: Allergies Allergy/AdvReac Type Severity Reaction Status Date / Time oxycodone Allergy Verified 10/01/17 12:11 tramadol Allergy NAUSEA Verified 10/01/17 12:11 Results - Vital Signs Recent Vital Signs: Last Vital Signs Temp 98 F 10/03/17 17:55 Pulse 80 10/03/17 17:55 Resp 16 10/03/17 17:55 BP 118/60 10/03/17 17:55 Pulse Ox 100 10/03/17 17:55 - Labs Result Diagrams: 10/01/17 12:53 10/01/17 12:53 Labs: Laboratory Results - last 24 hr 10/03/17 07:18 Phosphorus 9.4 H
[2017-10-04 17:40] VITALS: O2SAT 98
--- NOTE | 2017-10-05 21:37 | CARD ---
APPROVED REPORT EXAM: Two-dimensional and M-mode echocardiogram with Doppler and color Doppler. Other Information Quality : GoodRhythm : INDICATION Chest Pain ESRD, FEVER RISK FACTORS Hypertension 2D DIMENSIONS IVSd1.1 (0.7-1.1cm)LVDd4.5 (3.9-5.9cm) PWd1.1 (0.7-1.1cm)LVDs3.0 (2.5-4.0cm) FS (%) 33.3 %LVEF (%)62.0 (>50%) M-Mode DIMENSIONS RVDd2.19 (2.1-3.2cm)Left Atrium (MM)2.71 (2.5-4.0cm) IVSd0.83 (0.7-1.1cm)Aortic Root2.60 (2.2-3.7cm) LVDd4.71 (4.0-5.6cm)Aortic Cusp Exc.2.06 (1.5-2.0cm) PWd1.28 (0.7-1.1cm)FS (%) 39 % LVDs2.89 (2.0-3.8cm)LVEF (%)69 (>50%) Mitral Valve MV E Cmqnnfbp89.3cm/sMV A Pfnkystv24.0cm/sE/A ratio1.5 TDI E/Lateral E'0.0E/Medial E'0.0 Tricuspid Valve TR Peak [id number]/sTR Peak Gr.[id number] <Conclusion> Left ventricle: thickness: normal; size: normal; overall ejection fraction: 70%: diastolic filling pressures: normal Mitral valve: annulus: normal: leaflets: normal: excursion: normal; no significant trans-mitral gradient: mild incompetence: left atrium: normal Aortic valve: leaflets: normal: excursion: normal; no significant trans-aortic gradient: No significant incompetence: aortic root: normal Right sided Structures: Pulmonary valve: normal; no significant incompetence; Tricuspid valve: normal; no significant incompetence: Intra-cardiac hemodynamics: pulmonary systolic pressures: 32 mmHg; central venous pressures: normal No pericardial effusion
--- NOTE | 2017-10-06 03:18 | CARD ---
APPROVED REPORT EKG Measurement Heart [id number] <Conclusion> Normal sinus rhythm Minimal voltage criteria for LVH, may be normal variant Borderline ECG
== END 2017-10-03 20:01 | disposition home or self-care (01) | DRG 143 ==
LOC: C.ER 11:50 → C.9E 13:44 → C.6T 17:07
PROVIDERS: ADMIT Internal Medicine Nephrology; ATTEND Internal Medicine Nephrology
PROC: 5A1D70Z Performance of Urinary Filtration, Intermittent, Less than 6 Hours Per Day (ICD-10-PCS; principal; 2017-10-01)
DX: R07.89 Other chest pain (principal); I12.0 Hypertensive chronic kidney disease with stage 5 chronic kidney disease or end stage renal disease; N18.6 End stage renal disease; E03.9 Hypothyroidism, unspecified; Z79.82 Long term (current) use of aspirin; Z87.01 Personal history of pneumonia (recurrent); Z87.11 Personal history of peptic ulcer disease; Z90.49 Acquired absence of other specified parts of digestive tract; Z91.15 Patient's noncompliance with renal dialysis; Z91.19 Patient's noncompliance with other medical treatment and regimen